=== PATIENT | female | born 1935 | race Caucasian/White ===

== ENCOUNTER 2017-06-16 19:11 | Emergency (ER) | payer MEDICARE, OTHER ==
[~2017-06-16] VITALS: Ht 154.9 cm; Wt 65.0 kg
[~2017-06-16 19:11] MED LIST changes: -SIMV20TA2; -TRIA1OI; -WARF4TAB51
[2017-06-16] MEDS ORDERED: TRIA1OI (19:31)
[2017-06-16] MEDS ORDERED: WARF4TAB51 (19:31)
[2017-06-16] MEDS ORDERED: SIMV20TA2 (19:31)
[2017-06-16] MEDS ORDERED: NS 1,000 ML IV SCH (20:07)
[2017-06-16] MEDS ORDERED: ONDANSETRON 4MG/2ML VIAL (J2405) IV ONE (20:15)
[2017-06-16] MEDS ORDERED: fentaNYL 100 MCG/2 ML INJECTION (J3010) IV ONE (20:15)
[2017-06-16] MEDS ORDERED: PROPOFOL 200 MG/20 ML VIAL IV PRN (20:15)
[2017-06-16] MEDS ORDERED: KETAMINE HCL 200 MG/20 ML VIAL IV ONE (20:45)
[2017-06-16 21:42] VITALS: BP 135/74
[2017-06-16] MEDS ORDERED: NORCO 5/325MG TABLET (BULK FOR ED) PO ONE (22:00)
--- NOTE | 2017-06-17 06:52 | REP ---
Right shoulder, single AP view, portable study, post reduction: Comparison is the right shoulder study performed earlier this same evening. The previous inferior dislocation of the humeral head has been satisfactorily reduced. There is a Hill-Sachs lesion of the humeral head. The distal clavicle appears resected. The distal clavicle is slightly elevated in relation to the acromion. This is a change from the comparison study. Signed by Brendon Crawford MD 06/17/2017 06:44 A
== END 2017-06-16 22:14 | disposition home or self-care (01) ==
LOC: M ED 19:11
DX: S43.004A Unspecified dislocation of right shoulder joint, initial encounter (principal); S42.251A Displaced fracture of greater tuberosity of right humerus, initial encounter for closed fracture; M81.0 Age-related osteoporosis without current pathological fracture; S40.021A Contusion of right upper arm, initial encounter; S50.01XA Contusion of right elbow, initial encounter; W10.9XXA Fall (on) (from) unspecified stairs and steps, initial encounter; Y92.219 Unspecified school as the place of occurrence of the external cause; Y93.01 Activity, walking, marching and hiking; Y99.8 Other external cause status; I48.91 Unspecified atrial fibrillation; Z79.01 Long term (current) use of anticoagulants; Z79.899 Other long term (current) drug therapy
CPT/HCPCS: 73020; 73030; 73060; 73070; 93041; 94760; 96374; 96375; 99285; J2405; J3010

== ENCOUNTER → 2017-06-16 | Outpatient (CLI) | payer MEDICARE, OTHER ==
[~2017-06-16] MED LIST: /WARF2TA; CEFT500T; LOPR50TA; SIMV20TA2; THERGRAN; TRIA1OI; WARF4TAB51; [UNRECOGNIZED DRUG - CODE]
--- NOTE | 2017-06-16 20:12 | REP ---
Right shoulder series: Three views: History: Upper arm injury. Findings: There is an anterior inferior glenohumeral dislocation with Hill-Sachs impaction fracture. The distal clavicle on the right appears to have been resected with widening of the acromioclavicular joint. There is diffuse osteoporosis. Impression: Anterior inferior glenohumeral dislocation with Hill-Sachs impaction fracture. Diffuse osteoporosis. Old postsurgical changes distal clavicle on the right with widening of the AC joint. Signed by Gustavo Mann MD 06/17/2017 07:53 A
--- NOTE | 2017-06-16 20:13 | REP ---
Right humerus: Two views: History: Upper arm injury. Findings: Two views of the right humerus demonstrate diffuse osteopenia. An anterior inferior right glenohumeral dislocation is seen. This is described in the right shoulder views. Diffuse osteoporosis is seen. The distal clavicle has been resected on the right. No additional fracture or other injury seen. Impression: Anterior inferior right glenohumeral dislocation. Signed by Gustavo Mann MD 06/17/2017 07:53 A
--- NOTE | 2017-06-17 07:33 | REP ---
Right elbow series: Three views: History: Upper arm injury. Findings: Three views right elbow demonstrate diffuse osteopenia. There is some chondrocalcinosis. There is no evidence of fracture subluxation or joint effusion at the elbow. There is dystrophic soft-tissue calcification in the right mid forearm. Impression: No fracture noted. Signed by Gustavo Mann MD 06/17/2017 07:55 A
== END ==
LOC: M WUC 18:19
PROVIDERS: ATTEND Physician Assistant
DX: S42.251A Displaced fracture of greater tuberosity of right humerus, initial encounter for closed fracture (principal); M81.0 Age-related osteoporosis without current pathological fracture; S40.021A Contusion of right upper arm, initial encounter; S50.01XA Contusion of right elbow, initial encounter; X58.XXXA Exposure to other specified factors, initial encounter; Y92.9 Unspecified place or not applicable; Y93.9 Activity, unspecified; Y99.9 Unspecified external cause status

== ENCOUNTER 2018-02-28 18:59 | Emergency (ER) | payer MEDICARE, OTHER ==
[2018-02-28 20:13] LABS: BASO # 0.1 10^3/uL (0.0-0.2); BASO % 0.3 % (0.0-1.0); EOS % 5.3 % (0.0-3.0); HEMOGLOBIN 12.6 g/dl (12.0-15.5); IMMATURE GRANULOCYTE % 0.5 % (0-3.0); LYMPH # 1.3 10^3/uL (1.5-4.5); LYMPH % 7.3 % (24.0-44.0); MEAN CORPUSCULAR HEMOGLOBIN 30.1 pg (27.0-33.0); MEAN CORPUSCULAR HGB CONC 33.2 g/dl (32.0-36.5); MEAN CORPUSCULAR VOLUME 90.9 fl (80.0-96.0); MONO # 0.4 10^3/uL (0.0-0.8); MONO % 1.9 % (0.0-5.0); NEUTROPHILS # 15.4 10^3/uL (1.8-7.7); NEUTROPHILS % 84.7 % (36.0-66.0); PLATELET COUNT, AUTOMATED 227 10^3/uL (150-450); RED BLOOD COUNT 4.18 10^6/uL (4.00-5.40); RED CELL DISTRIBUTION WIDTH 12.7 % (11.5-14.5); WHITE BLOOD COUNT 18.2 10^3/uL (4.0-10.0)
[2018-02-28 20:23] LABS: INR 3.26; PROTHROMBIN TIME 34.7 SECONDS (12.4-14.5)
[2018-02-28 20:24] LABS: PARTIAL THROMBOPLASTIN TIME 56.6 SECONDS (26.8-37.9)
[2018-02-28 20:32] LABS: ANION GAP 6 MEQ/L (8-16); BLOOD UREA NITROGEN 34 MG/DL (7-18); CALCIUM LEVEL 8.7 MG/DL (8.8-10.2); CARBON DIOXIDE LEVEL 26 MEQ/L (21-32); CHLORIDE LEVEL 108 MEQ/L (98-107); CREATININE FOR GFR 1.25 MG/DL (0.55-1.30); GLOMERULAR FILTRATION RATE 43.4 (>32); GLUCOSE, FASTING 112 MG/DL (70-100); POTASSIUM SERUM 4.2 MEQ/L (3.5-5.1); SODIUM LEVEL 140 MEQ/L (136-145)
[2018-02-28] MEDS: methylPREDNISolone INJ 125 MG/2 ML VIAL (J2930) IV (20:51)
[2018-02-28 21:41] LABS: NT-PRO BNP 563 PG/ML (<450)
== END 2018-02-28 22:19 | disposition home or self-care (01) ==
LOC: M ED 18:59
DX: R22.42 Localized swelling, mass and lump, left lower limb (principal); R21 Rash and other nonspecific skin eruption; I48.91 Unspecified atrial fibrillation; I50.9 Heart failure, unspecified; E78.5 Hyperlipidemia, unspecified; Z79.01 Long term (current) use of anticoagulants; Z79.899 Other long term (current) drug therapy
CPT/HCPCS: J2930

== ENCOUNTER → 2018-03-02 | Outpatient (REF) | payer MEDICARE, OTHER ==
[2018-03-02 18:06] LABS: INR 3.71; PROTHROMBIN TIME 38.6 SECONDS (12.4-14.5)
== END ==
LOC: M LAB REF 17:32
DX: Z79.01 Long term (current) use of anticoagulants (principal)
CPT/HCPCS: 85610

== ENCOUNTER 2018-05-10 11:07 | Emergency (ER) | payer MEDICARE, OTHER ==
[2018-05-10] MEDS: NS 500 ML IV (15:30)
[2018-05-10] MEDS: GASTROGRAFIN SOLUTION 30ML PO ×2 (16:00→16:30)
[2018-05-10 16:05] LABS: BASO # 0.1 10^3/uL (0.0-0.2); BASO % 1.2 % (0.0-1.0); EOS # 0.2 10^3/uL (0.0-0.50); EOS % 2.3 % (0.0-3.0); HEMATOCRIT 41.3 % (36.0-47.0); HEMOGLOBIN 13.7 g/dl (12.0-15.5); IMMATURE GRANULOCYTE % 0.2 % (0-3.0); LYMPH # 2.2 10^3/uL (1.5-4.5); LYMPH % 33.8 % (24.0-44.0); MEAN CORPUSCULAR HEMOGLOBIN 30.2 pg (27.0-33.0); MEAN CORPUSCULAR HGB CONC 33.2 g/dl (32.0-36.5); MEAN CORPUSCULAR VOLUME 91.2 fl (80.0-96.0); MONO # 0.5 10^3/uL (0.0-0.8); MONO % 7.5 % (0.0-5.0); NEUTROPHILS # 3.6 10^3/uL (1.8-7.7); PLATELET COUNT, AUTOMATED 247 10^3/uL (150-450); RED BLOOD COUNT 4.53 10^6/uL (4.00-5.40); RED CELL DISTRIBUTION WIDTH 12.7 % (11.5-14.5); WHITE BLOOD COUNT 6.5 10^3/uL (4.0-10.0)
[2018-05-10 16:20] LABS: INR 2.13; PARTIAL THROMBOPLASTIN TIME 34.8 SECONDS (26.8-37.9); PROTHROMBIN TIME 24.6 SECONDS (12.4-14.5)
[2018-05-10 16:25] LABS: ALBUMIN 3.7 GM/DL (3.2-5.2); ALBUMIN/GLOBULIN RATIO 0.95 (1.00-1.93); ALKALINE PHOSPHATASE 62 U/L (45-117); ALT/SGPT 19 U/L (12-78); ANION GAP 8 MEQ/L (8-16); AST/SGOT 19 U/L (7-37); BILIRUBIN,DIRECT 0.3 MG/DL (0.0-0.2); BILIRUBIN,TOTAL 0.9 MG/DL (0.2-1.0); BLOOD UREA NITROGEN 17 MG/DL (7-18); CALCIUM LEVEL 8.9 MG/DL (8.8-10.2); CARBON DIOXIDE LEVEL 27 MEQ/L (21-32); CHLORIDE LEVEL 106 MEQ/L (98-107); CREATININE FOR GFR 0.77 MG/DL (0.55-1.30); GLOMERULAR FILTRATION RATE > 60.0 (>32); GLUCOSE, FASTING 92 MG/DL (70-100); LIPASE 151 U/L (73-393); POTASSIUM SERUM 3.8 MEQ/L (3.5-5.1); SODIUM LEVEL 141 MEQ/L (136-145); TOTAL PROTEIN 7.6 GM/DL (6.4-8.2)
[2018-05-10] MEDS ORDERED: ISOVUE-370 76% 100ML VIAL (Q9967) As Ordered (17:01)
== END 2018-05-10 18:40 | disposition home or self-care (01) ==
LOC: M ED 11:07
DX: K62.89 Other specified diseases of anus and rectum (principal); K57.30 Diverticulosis of large intestine without perforation or abscess without bleeding; K80.20 Calculus of gallbladder without cholecystitis without obstruction; I50.9 Heart failure, unspecified; E78.5 Hyperlipidemia, unspecified; Z79.01 Long term (current) use of anticoagulants; Z87.891 Personal history of nicotine dependence; Z88.8 Allergy status to other drugs, medicaments and biological substances; Z79.899 Other long term (current) drug therapy
CPT/HCPCS: Q9963

== ENCOUNTER 2018-05-12 06:16 | Emergency (ER) | payer MEDICARE, OTHER ==
[2018-05-12] MEDS: MORPHINE 2 MG/ML 1ML SYRINGE (J2270) IV ×2 (08:08)
[2018-05-12] MEDS: ONDANSETRON 4MG/2ML VIAL (J2405) IV ×2 (08:08)
[2018-05-12] MEDS: NS 1,000 ML IV ×2 (08:09)
[2018-05-12] MEDS: MORPHINE 4 MG/ML 1ML VIAL/SYRINGE (J2270) IV ×2 (08:44)
[2018-05-12] MEDS: PROPOFOL 200 MG/20 ML VIAL IV ×4 (09:23→09:26)
== END 2018-05-12 11:02 | disposition home or self-care (01) ==
LOC: M ED 06:16
DX: S43.004A Unspecified dislocation of right shoulder joint, initial encounter (principal); X58.XXXA Exposure to other specified factors, initial encounter; Y92.099 Unspecified place in other non-institutional residence as the place of occurrence of the external cause; Y93.9 Activity, unspecified; Y99.9 Unspecified external cause status; I48.91 Unspecified atrial fibrillation; Z79.01 Long term (current) use of anticoagulants; Z79.899 Other long term (current) drug therapy; Z88.8 Allergy status to other drugs, medicaments and biological substances
CPT/HCPCS: J2270

== ENCOUNTER → 2018-05-26 | Outpatient (REF) | payer MEDICARE, OTHER | LOC: M LAB REF 11:43 | DX: N39.41 Urge incontinence (principal) | CPT/HCPCS: 87086 ==

== ENCOUNTER → 2020-12-06 | Outpatient (CLI) | payer MEDICARE, OTHER ==
[~2020-12-06] MED LIST changes: -/WARF2TA; +ADVI200C5 PO; +B121000T PO; +COUM1TAB16; +GLUCTAB13 PO; +HYDR-3715 PO; +PRED20TA PO; +SIMV20TA22; +TRIA1OI; +WARF4TAB51
--- NOTE | 2020-12-06 11:00 | REP ---
INDICATION: PAIN AFTER FALL COMPARISON: None. TECHNIQUE: AP, lateral, bilateral oblique views left wrist. FINDINGS: Age-related osteopenia and degenerative changes limit evaluation. There is a comminuted fracture of the distal radial metaphysis. 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 Subtle injuries involving carpal bones cannot definitively be excluded. IMPRESSION: 1. Comminuted fracture of the distal radial metaphysis. 2. Osteopenia and degenerative changes limited evaluation of the carpal bones and subtle associated injury cannot be excluded. <Electronically signed by Tereso Muse > 12/06/20 [id number]
--- NOTE | 2020-12-06 11:01 | REP ---
INDICATION: PAIN AFTER FALL COMPARISON: None. TECHNIQUE: AP, lateral, bilateral oblique views left hand. FINDINGS: Age-related osteopenia and degenerative changes through the wrist and phalanges noted without obvious acute fracture. There is a comminuted fracture of the distal radial metaphysis with overlying soft tissue swelling. IMPRESSION: 1. Comminuted fracture of the distal radial metaphysis with overlying soft tissue swelling. 2. Significant osteopenia and degenerative changes to the wrist and hand limit evaluation, but without obvious acute injury identified. <Electronically signed by Tereso Muse > 12/06/20 1052
== END ==
LOC: M WUC 10:32
PROVIDERS: ATTEND Nurse Practitioner Family
DX: S52.352A Displaced comminuted fracture of shaft of radius, left arm, initial encounter for closed fracture (principal); W00.0XXA Fall on same level due to ice and snow, initial encounter; Y92.9 Unspecified place or not applicable; Y93.9 Activity, unspecified; Y99.9 Unspecified external cause status

== ENCOUNTER → 2021-07-09 | Outpatient (REF) | payer MEDICARE, OTHER ==
[2021-07-09 18:36] LABS: VITAMIN B12 LEVEL 820 PG/ML (247-911)
== END ==
LOC: M LAB REF 17:02
PROVIDERS: ATTEND Nurse Practitioner Adult Health
DX: R41.3 Other amnesia (principal)

== ENCOUNTER 2023-01-11 14:18 | Inpatient (IN) | payer MEDICARE, OTHER ==
[~2023-01-11] VITALS: Ht 152.4 cm; Wt 69.5 kg
[~2023-01-11 14:18] MED LIST changes: -SIMV20TA22; +SIMV20TA22 PO
[2023-01-11] MEDS ORDERED: XARE15TA (14:31)
[2023-01-11] MEDS ORDERED: METO1TAB32 PO (14:31)
[2023-01-11 15:12] LABS: BASO # 0.1 10^3/uL (0.0-0.2); BASO % 1.4 % (0.0-1.0); EOS # 0.3 10^3/uL (0.0-0.5); EOS % 4.1 % (0.0-3.0); HEMATOCRIT 26.7 % (36.0-47.0); HEMOGLOBIN 7.7 g/dl (12.0-15.5); LYMPH # 1.5 10^3/uL (1.5-5.0); LYMPH % 21.5 % (24.0-44.0); MEAN CORPUSCULAR HEMOGLOBIN 21.8 pg (27.0-33.0); MEAN CORPUSCULAR HGB CONC 28.8 g/dl (32.0-36.5); MEAN CORPUSCULAR VOLUME 75.4 fl (80.0-96.0); MONO # 0.6 10^3/uL (0.0-0.8); MONO % 8.7 % (2.0-8.0); NEUTROPHILS # 4.5 10^3/uL (1.5-8.5); PLATELET COUNT, AUTOMATED 297 10^3/uL (150-450); RED BLOOD COUNT 3.54 10^6/uL (4.00-5.40); WHITE BLOOD COUNT 7.1 10^3/uL (4.0-10.0)
[2023-01-11 15:34] LABS: CPK CREATINE PHOSPHOKINASE 57 U/L (34-145)
[2023-01-11 15:35] LABS: ALBUMIN 2.6 G/DL (3.2-5.2); ALKALINE PHOSPHATASE 77 U/L (46-116); ALT/SGPT 14 U/L (7.0-40); AST/SGOT 14 U/L (<34); BILIRUBIN,DIRECT 0.3 MG/DL (<0.4); BILIRUBIN,TOTAL 0.6 MG/DL (0.3-1.2); BLOOD UREA NITROGEN 18 MG/DL (9-23); CALCIUM LEVEL 7.9 MG/DL (8.3-10.6); CARBON DIOXIDE LEVEL 26 MMOL/L (20-31); CHLORIDE LEVEL 112 MMOL/L (98-107); CK-MB VALUE MASS < 1.0 NG/ML (<3.6); GLOMERULAR FILTRATION RATE > 60.0 (>32); GLUCOSE, FASTING 101 MG/DL (74-106); MB/CK RELATIVE INDEX 1.75 (< OR =4); SODIUM LEVEL 141 MMOL/L (136-145); TOTAL PROTEIN 6.6 G/DL (5.7-8.2)
[2023-01-11 15:40] LABS: THYROID STIMULATING HORMONE 2.118 uIU/ML (0.55-4.78); THYROXINE (T4) 8.9 UG/DL (4.5-10.9)
[2023-01-11] MEDS ORDERED: FUROSEMIDE 20MG/2ML VIAL IV ONE (16:40)
[2023-01-11] MEDS ORDERED: ACETAMINOPHEN TAB 650MG DOSE (2X325MG) PO PRN (17:15)
[2023-01-11] MEDS ORDERED: LEVALBUTEROL 1.25MG 0.5ML CONCENTRATE NEB INH ONE (18:00)
[2023-01-11 18:28] VITALS: O2SAT 99
[2023-01-11] MEDS ORDERED: VITMTA PO (18:58)
[2023-01-11] MEDS ORDERED: HOME MED LIST COMPLETE! XX SCH (19:00)
[2023-01-11 19:48] VITALS: BP 125/81
[2023-01-11] MEDS: LEVALBUTEROL 1.25MG 0.5ML CONCENTRATE NEB INH SCH (19:51)
[2023-01-11] MEDS: PANTOPRAZOLE 40MG VIAL IV SCH (21:01)
[2023-01-11 22:14] LABS: HEMATOCRIT 28.1 % (36.0-47.0)
[2023-01-12] MEDS: LEVALBUTEROL 1.25MG 0.5ML CONCENTRATE NEB INH SCH ×4 (01:01→19:19)
[2023-01-12 04:00] VITALS: BP 124/69
[2023-01-12 04:46] LABS: HEMATOCRIT 26.4 % (36.0-47.0); HEMOGLOBIN 7.5 g/dl (12.0-15.5); MEAN CORPUSCULAR HEMOGLOBIN 21.2 pg (27.0-33.0); MEAN CORPUSCULAR HGB CONC 28.4 g/dl (32.0-36.5); MEAN CORPUSCULAR VOLUME 74.6 fl (80.0-96.0); PLATELET COUNT, AUTOMATED 300 10^3/uL (150-450); RED BLOOD COUNT 3.54 10^6/uL (4.00-5.40)
[2023-01-12 05:22] LABS: ALBUMIN 2.5 G/DL (3.2-5.2); ALKALINE PHOSPHATASE 73 U/L (46-116); ALT/SGPT 12 U/L (7.0-40); AST/SGOT 20 U/L (<34); BILIRUBIN,TOTAL 0.9 MG/DL (0.3-1.2); BLOOD UREA NITROGEN 14 MG/DL (9-23); CARBON DIOXIDE LEVEL 27 MMOL/L (20-31); CHLORIDE LEVEL 107 MMOL/L (98-107); CREATININE FOR GFR 0.83 MG/DL (0.55-1.30); GLOMERULAR FILTRATION RATE > 60.0 (>32); GLUCOSE, FASTING 89 MG/DL (74-106); MAGNESIUM LEVEL 1.7 MG/DL (1.8-2.4); POTASSIUM SERUM 3.5 MMOL/L (3.5-5.1); SODIUM LEVEL 142 MMOL/L (136-145); TOTAL PROTEIN 6.4 G/DL (5.7-8.2)
[2023-01-12] MEDS ORDERED: MAGNESIUM OXIDE 400MG TAB (MAG-OX) PO ONE (07:30)
[2023-01-12 07:46] VITALS: BP 122/75
[2023-01-12] MEDS: PANTOPRAZOLE 40MG VIAL IV SCH ×2 (08:48→21:17)
[2023-01-12] MEDS: METOPROLOL SUCC *XL* 25MG TAB (TopROL *XL*) PO SCH (08:48)
[2023-01-12] MEDS: SIMVASTATIN 20 MG TAB PO SCH (08:49)
[2023-01-12] MEDS: MULTIVITAMINS/MINERALS THERAP 1 TAB PO SCH (08:49)
[2023-01-12 11:00] VITALS: BP 135/90
[2023-01-12 14:00] VITALS: BP 124/92
[2023-01-12 20:00] VITALS: BP 142/87
[2023-01-13] VITALS (8 sets, daily range): BP systolic 113–143; BP diastolic 62–87
[2023-01-13] MEDS: LEVALBUTEROL 1.25MG 0.5ML CONCENTRATE NEB INH SCH ×3 (02:00→13:18)
[2023-01-13 05:56] LABS: BASO # 0.1 10^3/uL (0.0-0.2); BASO % 0.6 % (0.0-1.0); EOS # 0.3 10^3/uL (0.0-0.5); EOS % 3.8 % (0.0-3.0); HEMATOCRIT 27.1 % (36.0-47.0); HEMOGLOBIN 7.7 g/dl (12.0-15.5); LYMPH # 1.1 10^3/uL (1.5-5.0); LYMPH % 13.8 % (24.0-44.0); MEAN CORPUSCULAR HGB CONC 28.4 g/dl (32.0-36.5); MEAN CORPUSCULAR VOLUME 73.8 fl (80.0-96.0); MONO # 0.9 10^3/uL (0.0-0.8); MONO % 11.5 % (2.0-8.0); NEUTROPHILS # 5.5 10^3/uL (1.5-8.5); PLATELET COUNT, AUTOMATED 271 10^3/uL (150-450); RED BLOOD COUNT 3.67 10^6/uL (4.00-5.40); WHITE BLOOD COUNT 7.9 10^3/uL (4.0-10.0)
[2023-01-13 06:45] LABS: ALBUMIN 2.4 G/DL (3.2-5.2); ALKALINE PHOSPHATASE 73 U/L (46-116); ALT/SGPT 11 U/L (7.0-40); AST/SGOT 20 U/L (<34); BILIRUBIN,TOTAL 1.1 MG/DL (0.3-1.2); BLOOD UREA NITROGEN 15 MG/DL (9-23); CALCIUM LEVEL 8.2 MG/DL (8.3-10.6); CARBON DIOXIDE LEVEL 26 MMOL/L (20-31); CHLORIDE LEVEL 107 MMOL/L (98-107); CREATININE FOR GFR 0.79 MG/DL (0.55-1.30); GLOMERULAR FILTRATION RATE > 60.0 (>32); GLUCOSE, FASTING 115 MG/DL (74-106); MAGNESIUM LEVEL 1.7 MG/DL (1.8-2.4); POTASSIUM SERUM 3.9 MMOL/L (3.5-5.1); SODIUM LEVEL 141 MMOL/L (136-145); TOTAL PROTEIN 6.1 G/DL (5.7-8.2)
[2023-01-13] MEDS: MULTIVITAMINS/MINERALS THERAP 1 TAB PO SCH (08:57)
[2023-01-13] MEDS: SIMVASTATIN 20 MG TAB PO SCH (08:57)
[2023-01-13] MEDS: PANTOPRAZOLE 40MG VIAL IV SCH (08:57)
[2023-01-13] MEDS ORDERED: MAG SULF 1GM/100ML (MAG RUN) 1 GM in IV 1 EA IV ONE (10:15)
[2023-01-13] MEDS ORDERED: SUCR1ORA PO (10:32)
[2023-01-13] MEDS ORDERED: PANT40TA29 PO (10:32)
[2023-01-13] MEDS: METOPROLOL SUCC *XL* 25MG TAB (TopROL *XL*) PO SCH (11:15)
[2023-01-13] MEDS ORDERED: CARA1TAB6 PO (11:44)
[2023-01-13] MEDS ORDERED: SUCRALFATE SUSP 1GM/10ML UD PO SCH (12:00)
[2023-01-13 15:45] LABS: HEMOGLOBIN 8.7 g/dl (12.0-15.5)
[2023-01-13] MEDS ORDERED: PANTOPRAZOLE 40MG TAB (PROTONIX) PO SCH (21:00)
== END 2023-01-13 17:17 | disposition home or self-care (01) | DRG 378 ==
LOC: M ED 14:18 → M ED INP 17:12 → M PCU 19:45 → M MSPAV 01-12 11:03
PROVIDERS: ADMIT Family Medicine; ATTEND General Practice
PROC: 30233N1 Transfusion of Nonautologous Red Blood Cells into Peripheral Vein, Percutaneous Approach (ICD-10-PCS; principal; 2023-01-11)
DX: K62.5 Hemorrhage of anus and rectum (principal); I50.32 Chronic diastolic (congestive) heart failure; D62 Acute posthemorrhagic anemia; I48.20 Chronic atrial fibrillation, unspecified; R06.02 Shortness of breath; D50.9 Iron deficiency anemia, unspecified; I11.0 Hypertensive heart disease with heart failure; F03.90 Unspecified dementia, unspecified severity, without behavioral disturbance, psychotic disturbance, mood disturbance, and anxiety; K64.8 Other hemorrhoids; Z66 Do not resuscitate; Z79.01 Long term (current) use of anticoagulants; Z79.899 Other long term (current) drug therapy; Z88.8 Allergy status to other drugs, medicaments and biological substances